=== PATIENT | female | born 1955 | race Caucasian/White ===

== ENCOUNTER 2017-01-14 11:55 | Inpatient (IN) | payer BC ==
[~2017-01-14] VITALS: Ht 167.6 cm; Wt 75.3 kg
[2017-01-14] MEDS ORDERED: VITA1TAB19 PO (14:07)
[2017-01-14] MEDS ORDERED: CHOL100013 PO (14:07)
[2017-01-14] MEDS ORDERED: METF500T4 PO (14:07)
[2017-01-14] MEDS ORDERED: GLIM4TAB2 PO (14:07)
[2017-01-14] MEDS ORDERED: OMEP40CA5 PO (14:07)
[2017-01-14] MEDS ORDERED: ALLO300T PO (14:07)
[2017-01-14] MEDS ORDERED: CINN500C2 PO (14:07)
[2017-01-14] MEDS ORDERED: LOSA100T6 PO (14:07)
[2017-01-14] MEDS ORDERED: PIOG15TA42 PO (14:07)
[2017-01-14] MEDS ORDERED: VANCOMYCIN 1.25 GM in IV NORMAL SALINE 250ML 250 ML IV SCH (14:15)
[2017-01-14] MEDS ORDERED: HYDROcodone/APAP 5/325MG 1 TAB TABLET PO PRN (14:15)
[2017-01-14] MEDS ORDERED: VANCOMYCIN 1.75 GM in IV NORMAL SALINE 500ML BAG 500 ML IV ONE (14:45)
[2017-01-14 14:52] LABS: BASO % 1 % (0-3); EOS % 0 % (0-3); HEMATOCRIT 32.5 % (36.0-47.0); HEMOGLOBIN 10.9 g/dL (12.0-15.5); LYMPH # 1.1 x10^3/uL (1.0-4.8); LYMPH % 14 % (24-48); MEAN CORPUSCULAR HEMOGLOBIN 28 pg (25-35); MEAN CORPUSCULAR HGB CONC 34 g/dL (31-37); MEAN CORPUSCULAR VOLUME 82 fL (79-100); MONO % 8 % (0-9); NEUT % 77 % (31-73); PLATELET COUNT 201 x10^3/uL (140-400); RED BLOOD COUNT 3.96 x10^6/uL (3.50-5.40); RED CELL DISTRIBUTION WIDTH 16.3 % (11.5-14.5)
[2017-01-14 15:00] VITALS: BP 188/89
[2017-01-14] MEDS: ALLOPURINOL 300 MG TABLET. PO SCH (15:00)
[2017-01-14] MEDS: CHOLECALCIFEROL (VITAMIN D3) 1,000 UNIT TABLET PO SCH (15:00)
[2017-01-14] MEDS: PANTOPRAZOLE 40 MG TABLET.DR. PO SCH (15:00)
[2017-01-14] MEDS: PIOGLITAZONE 15 MG TABLET. PO SCH (15:00)
[2017-01-14] MEDS: VITAMIN B COMPLEX TABLET. PO SCH (15:00)
[2017-01-14] MEDS ORDERED: DIPHTH,PERTUSS(ACELL),TET TOX 0.5 ML DISP.SYRIN. VAX IM ONE (15:00)
[2017-01-14 15:04] LABS: ALBUMIN 3.8 g/dL (3.4-5.0); ALBUMIN/GLOBULIN RATIO 0.9 (1.0-1.7); CALCIUM 9.2 mg/dL (8.5-10.1); CREATININE 1.5 mg/dL (0.6-1.0); GFR 35.2; POTASSIUM 3.8 mmol/L (3.5-5.1); TOTAL BILIRUBIN 0.5 mg/dL (0.2-1.0); TOTAL PROTEIN 7.9 g/dL (6.4-8.2)
[2017-01-14] MEDS: POTASSIUM CL 20MEQ D5-0.45NACL 1,000 ML IV SCH ×2 (15:10→21:57)
[2017-01-14] MEDS: ACETAMINOPHEN 325 MG TABLET. PO PRN ×2 (15:11→21:56)
[2017-01-14] MEDS: LOSARTAN POTASSIUM 50 MG TABLET. PO SCH (15:12)
[2017-01-14 15:53] VITALS: BP 188/99
--- NOTE | 2017-01-14 16:22 | HP ---
ADMIT DATE: 01/14/2017 CHIEF COMPLAINT: Facial pain and fever. HISTORY OF PRESENT ILLNESS: A 61-year-old white female with well controlled diabetic, hypertension, who came in with 2 days' of increasing left facial pain, fever, chills, malaise, and weakness. There has been no trauma, sinus symptoms, cough, or urinary tract symptoms and no explanation for the facial pain. PAST MEDICAL HISTORY: MULTIPLE DRUG ALLERGIES INCLUDING SULFA, PENICILLIN, AND ANTI-INFLAMMATORY DRUGS. She is well controlled diabetic on current meds. SOCIAL HISTORY: Nonsmoker, nondrinker, retired, physically active. . FAMILY HISTORY: Unremarkable. REVIEW OF SYSTEMS: No other specific complaints. OBJECTIVE: ENT: Left cheek and left forehead having diffuse papular redness, blanching in nature, non-vesicular, with no discrete areas of tenderness. There is some redness in the left parietal scalp overlying the no palpable adenopathy or masses noted. Eyes are normal. Pharynx is normal. NECK: Revealed no carotid bruits, masses. No overt adenopathy. CARDIOVASCULAR: Regular rate. No irregular beat, murmur, or tachycardia. Blood pressure was mildly elevated. LUNGS: Clear. ABDOMEN: Benign. EXTREMITIES: Good pedal and radial pulses. No joint or skin lesions or nail bed findings. ASSESSMENT: Left facial pain, rash, and fever. I suspect a bacterial cellulitis, most likely diagnosis given is the fever in the rapid onset of the rash with pain. Much less likely what appeared to be herpes zoster, but this is not vesicular and not specifically dermatomal along the cranial nerve branches. PLAN: IV vancomycin and cultures for now. If she develops vesicular lesions, we will add valacyclovir. KENNEDY BARTON MD DR: SHELLI/rohini JOB#: [id number] / [id number]
[2017-01-14] MEDS: metFORMIN 500 MG TABLET PO SCH (17:26)
[2017-01-14] MEDS: VANCOMYCIN PER PHARMACY MC PRN (17:49)
[2017-01-14] MEDS: GLIMEPIRIDE 2 MG TABLET. PO SCH (18:44)
[2017-01-14 19:00] VITALS: BP 171/90
[2017-01-14] MEDS ORDERED: GLIMEPIRIDE 2 MG TABLET. PO SCH (21:00)
[2017-01-14 23:00] VITALS: BP 149/7
[2017-01-15] MEDS ORDERED: diphenhydrAMINE HCL 25 MG CAPSULE PO PRN (05:30)
[2017-01-15 07:00] VITALS: BP 147/87
[2017-01-15] MEDS: PANTOPRAZOLE 40 MG TABLET.DR. PO SCH (08:33)
[2017-01-15] MEDS: CHOLECALCIFEROL (VITAMIN D3) 1,000 UNIT TABLET PO SCH (08:33)
[2017-01-15] MEDS: VITAMIN B COMPLEX TABLET. PO SCH (08:33)
[2017-01-15] MEDS: metFORMIN 500 MG TABLET PO SCH ×2 (08:33→17:14)
[2017-01-15] MEDS: PIOGLITAZONE 15 MG TABLET. PO SCH (08:34)
[2017-01-15] MEDS: ALLOPURINOL 300 MG TABLET. PO SCH (08:34)
[2017-01-15] MEDS: LOSARTAN POTASSIUM 50 MG TABLET. PO SCH (08:34)
[2017-01-15] MEDS ORDERED: GLIMEPIRIDE 2 MG TABLET. PO SCH (09:00)
[2017-01-15] MEDS ORDERED: NON FORMULARY ITEM (Cinnamon Bark (Cinnamon) 500 MG) PO SCH (09:00)
--- NOTE | 2017-01-15 09:05 | PDOC ---
Provider Note Provider Note temp lower, vss, glucose up a little re dm- creat 1.5, same as op- L forehead redness clearly less, no vesicles or sign of HZ- will cont vanco , add test dose clinda re rosmery pearce, need for op med KENNEDY BARTON MD Jan 15, 2017 09:04
[2017-01-15] MEDS: ACETAMINOPHEN 325 MG TABLET. PO PRN ×2 (10:43→21:51)
[2017-01-15 11:00] VITALS: BP 145/85
[2017-01-15] MEDS: diphenhydrAMINE HCL 25 MG CAPSULE PO PRN ×2 (11:49→21:51)
[2017-01-15] MEDS ORDERED: CLINDAMYCIN HCL 150 MG CAPSULE. PO ONE (13:00)
[2017-01-15] MEDS: VANCOMYCIN PER PHARMACY MC PRN (13:08)
[2017-01-15] MEDS: VANCOMYCIN 1 GM in IV NORMAL SALINE 250ML 250 ML IV SCH (14:08)
[2017-01-15 15:00] VITALS: BP 144/85
[2017-01-15] MEDS: GLIMEPIRIDE 2 MG TABLET. PO SCH (17:14)
[2017-01-15 19:00] VITALS: BP 174/95
[2017-01-15 22:51] VITALS: BP 170/90
[2017-01-16 03:00] VITALS: BP 146/85
[2017-01-16 07:00] VITALS: BP 154/83
--- NOTE | 2017-01-16 08:32 | DISCH ---
DISCHARGE INSTRUCTIONS Condition on Discharge Condition on Discharge: Stable Activity After Discharge Activity Instructions for Disc: No restrictions Diet after Discharge Diet after Discharge: Diabetic No Calorie Level Follow-Up Follow up with: 5d KENNEDY BARTON MD Jan 16, 2017 08:32
--- NOTE | 2017-01-16 08:36 | PDOC ---
Provider Note Provider Note [id number] KENNEDY BARTON MD Jan 16, 2017 08:35
[2017-01-16] MEDS: ALLOPURINOL 300 MG TABLET. PO SCH (08:40)
[2017-01-16] MEDS: VITAMIN B COMPLEX TABLET. PO SCH (08:40)
[2017-01-16] MEDS: metFORMIN 500 MG TABLET PO SCH (08:41)
[2017-01-16] MEDS: PANTOPRAZOLE 40 MG TABLET.DR. PO SCH (08:41)
[2017-01-16] MEDS: CHOLECALCIFEROL (VITAMIN D3) 1,000 UNIT TABLET PO SCH (08:41)
[2017-01-16] MEDS: PIOGLITAZONE 15 MG TABLET. PO SCH (08:41)
[2017-01-16] MEDS: LOSARTAN POTASSIUM 50 MG TABLET. PO SCH (08:47)
[2017-01-16 11:00] VITALS: BP 156/84
[2017-01-16] MEDS: VANCOMYCIN PER PHARMACY MC PRN (13:19)
[2017-01-16] MEDS: diphenhydrAMINE HCL 25 MG CAPSULE PO PRN (14:31)
[2017-01-16] MEDS: ACETAMINOPHEN 325 MG TABLET. PO PRN (14:31)
[2017-01-16] MEDS: VANCOMYCIN 1 GM in IV NORMAL SALINE 250ML 250 ML IV SCH (14:58)
[2017-01-16 15:21] VITALS: BP 151/86
[2017-01-16] MEDS ORDERED: CLIN150C14 PO (15:21)
--- NOTE | 2017-01-16 18:49 | DS ---
DATE OF DISCHARGE: 01/16/2017 HOSPITAL SUMMARY: The patient came in with left facial cellulitis of the forehead and cheek area and even the left scalp. There were no vesicular lesions and was not consistent with herpes zoster. CBC and chemistry profile were within normal limits with a baseline creatinine of 1.5. Blood culture had no growth. She was given IV vancomycin and will have three doses total prior to discharge. She had a low-grade fever on admission and became afebrile after about 12 hours and has remained afebrile since that time. She tolerated a test dose of clindamycin because of multiple prior drug allergies and is comfortable to take her last dose of vancomycin and start the clindamycin in 24 hours to be followed as an outpatient. FINAL DIAGNOSIS: Facial cellulitis and chronic kidney disease 3, stable. OPERATIONS, PROCEDURES, COMPLICATIONS, AND CONSULTATIONS: None. DISPOSITION: She will take clindamycin 300 mg t.i.d. for 3 days, then 150 mg t.i.d. after that ____ chance of drug side effects. Home medications remain the same. Office followup in 5 days. The patient did receive a tetanus prophylaxis as well. KENNEDY BARTON MD DR: SHELLI/nts JOB#: [id number] / [id number]
== END 2017-01-16 16:55 | disposition home or self-care (01) | DRG 603 ==
LOC: 5 NORTH 13:12
PROVIDERS: ADMIT Family Medicine; ATTEND Family Medicine
DX: L03.211 Cellulitis of face (principal); R50.9 Fever, unspecified; E11.9 Type 2 diabetes mellitus without complications; I10 Essential (primary) hypertension; E11.22 Type 2 diabetes mellitus with diabetic chronic kidney disease; I12.9 Hypertensive chronic kidney disease with stage 1 through stage 4 chronic kidney disease, or unspecified chronic kidney disease; N18.3 Chronic kidney disease, stage 3 (moderate); Z88.0 Allergy status to penicillin; Z88.2 Allergy status to sulfonamides; Z88.8 Allergy status to other drugs, medicaments and biological substances
CPT/HCPCS: 36415; 80053; 82962; 85027; 87040; 90715; J3370; J7040; J7050; Q0163; J7030

== ENCOUNTER → 2017-07-30 | Outpatient (CLI) | payer BC | END | disposition home or self-care (01) | LOC: KCIC MAMMO 10:33 | DX: Z12.31 Encounter for screening mammogram for malignant neoplasm of breast (principal) | CPT/HCPCS: 77067 ==

== ENCOUNTER → 2018-05-04 | Outpatient (CLI) | payer BC ==
[~2018-05-04] MED LIST: ALLO300T PO; CHOL100013 PO; CINN500C2 PO; CLIN150C14 PO; GLIM4TAB2 PO; LOSA100T7 PO; METF500T16 PO; OMEP40CA5 PO; PIOG15TA42 PO; VITA1TAB19 PO
--- NOTE | 2018-05-04 16:38 | RAD ---
FOOT LEFT 3V, ANKLE LEFT 3V Clinical Indication: DORSAL ANKLE PAIN AND SWELLING SINCE DECEMBER. NO KNOWN INJURY Comparison: None. Findings: There is diffuse soft tissue swelling of the ankle. There are moderate calcaneal enthesophytes. Ankle mortise is intact. No acute ankle fracture. Hammertoe deformities of the second through fifth toes. Probable bipartite medial sesamoid. Mild metatarsus primus varus and hallux valgus. Prominent os peroneum. No dorsal soft tissue swelling. No acute fracture of the foot. IMPRESSION: No acute bone abnormality. Electronically signed by: Ry Lewis MD (05/04/2018 4:35 PM) [id number]
--- NOTE | 2018-05-04 17:03 | RAD ---
Examination: Ultrasound renal artery duplex HISTORY: History of hypertension COMPARISON: None available. TECHNIQUE: Grayscale, color Doppler 2-D, spectral waveform is in the bilateral renal arteries are performed. Grayscale images of the kidneys are performed. FINDINGS: The right kidney measures 9.3 x 4.9 x 4.3 cm. The left kidney measures 10.3 x 5.2 x 4.1 cm. Bilateral renal veins are patent. The right renal artery velocity proximally measures 101 cm/s, mid 102 cm/s and distally measures 97 cm/s. The right renal artery to aorta velocity ratio is 1.06. The left renal artery velocity ratio proximally measures 149 cm/s, Mid 122 cm/s and distally measures 104 cm/s. The left renal artery to aorta velocity ratio is 1.55. No evidence of hydronephrosis. The urinary bladder is mildly distended. The right ureteral jet is not identified in the urinary bladder. IMPRESSION: No evidence of hemodynamically significant stenosis. Electronically signed by: Gavin Woods MD (05/04/2018 5:00 PM) [place] [id number]
== END | disposition home or self-care (01) ==
LOC: US 15:32
PROVIDERS: ATTEND Family Medicine
DX: I12.9 Hypertensive chronic kidney disease with stage 1 through stage 4 chronic kidney disease, or unspecified chronic kidney disease (principal); E11.22 Type 2 diabetes mellitus with diabetic chronic kidney disease; N18.3 Chronic kidney disease, stage 3 (moderate); N32.89 Other specified disorders of bladder; M20.12 Hallux valgus (acquired), left foot; M20.42 Other hammer toe(s) (acquired), left foot; M77.32 Calcaneal spur, left foot; R22.42 Localized swelling, mass and lump, left lower limb
CPT/HCPCS: 73610; 73630; 93975

== ENCOUNTER → 2018-10-05 | Outpatient (CLI) | payer BC ==
[~2018-10-05] MED LIST changes: +LOSA100T14 PO; -LOSA100T7 PO
[2018-10-05] MEDS: REGADENOSON 0.4 MG/5 ML DISP.SYRIN. IV ONE (12:12)
--- NOTE | 2018-10-06 12:50 | RAD ---
MR#: [id number] Date of Study: 10/05/2018 Ordering Physician: ZAIRA DAVIS, Referring Physician: SERVANDO LANG Tech: CORKY Spears APPROVED REPORT Test Type: Pharmacological Stress Nurse/Tech: Ashley Aguirre R.N. Test Indications: chest heaviness, palpatations Cardiac History: htn,dm Medications: See Electronic Medical Record Medical History: See Electronic Medical Record Resting ECG: SR Resting Heart Rate: 62 bpm Resting Blood Pressure: 151/74mmHg Pretest Chest Pain: No chest pain Nurse/Tech Notes S1S2, lungs CTA Consent: The procedure was explained to the patient in lay terms. Informed consent was witnessed. Anupam eout was entered into [employer]. History and Stress Test performed by RT Varun (R) (N) Pharm. Details Pharmacologic stress testing was performed using 0.4mg per 5ml of regadenoson given intravenously ove r 7-10 seconds. Stress Symptoms SOB, pounding HR in neck, POST EXERCISE Reason for Termination: Infusion complete Max HR: 87 bpm Max Blood Pressure: 170/73mmHg Blood Pressure response to exercise: Normal blood pressure response during stress. Heart Rate response to exercise: wnl Chest Pain: No. Arrhythmia: No. ST Change: No. INTERPRETATION Stress EKG Conclusion: No evidence of stress induced EKG changes. Imaging Protocol IMAGE PROTOCOL: Rest Tc-99m/stress Tc-99m 1 day Rest: Stress: Viability: Radiopharm.Tc99m VdzldbrhuEa37u Sestamibi Dose11.1mCi 32mCi Duration 16min. 13min. Img Date 10/05/2018 10/05/2018 Inj-Img [id number]. 60min. Rest Admin Site:IV - Right AntecubitalAdministrator:RT Varun (R)(N) Stress Admin Site: IV - Right AntecubitalAdministrator: SERVANDO ZuluagaTCJoshua, ARRT (R)(N) STRESS DATA End Diast. Vol.62.0mlLVEDV index BSA34.0ml End Syst. Vol.11.0mlLVESV index BSA6.0ml Myocardial Ywci201.0gEject. Gondybem26.0% Stress Scores Regional WT0.00Summed WT0.00 Regional WM0.00Summed WM0.00 The rest and stress images show normal perfusion, normal contraction and thickening. LV Perf. Quant 17 Seg. SSS0.00 17 Seg. SRS0.00 17 Seg. SDS0.00 Stress Defect Extent (% LAD)0.00Rest Defect Extent (% LAD)0.00Rev. Defect Extent (% LAD)0.00 Stress Defect Extent (% LCX) 0.00Rest Defect Extent (% LCX)0.00Rev. Defect Extent (% LCX)0.00 Stress Defect Extent (% RCA)0.00Rest Defect Extent (% RCA)0.00Rev. Defect Extent (% RCA)0.00 Stress Defect Extent (% MAYRA)0.00Rest Defect Extent (% MAYRA)0.00Rev. Defect Extent (% MAYRA)0.00 Other Information Quality:Good Risk Assessment: Low Risk Conclusion 1. No evidence of EKG changes with stress testing. 2. Normal perfusion at stress/rest. 3. Low risk study. 4. EF > 60%. Signed by : Robert Knight, Electronically Approved : 10/06/2018 12:49:29
== END | disposition home or self-care (01) ==
LOC: NM 10:29
PROVIDERS: ATTEND Internal Medicine Cardiovascular Disease
DX: R06.09 Other forms of dyspnea (principal); R06.02 Shortness of breath; M54.12 Radiculopathy, cervical region; I10 Essential (primary) hypertension; E11.9 Type 2 diabetes mellitus without complications
CPT/HCPCS: 78452; 93017; 96374; A9500; J2785

== ENCOUNTER → 2018-10-20 | Outpatient (CLI) | payer BC ==
--- NOTE | 2018-10-20 13:55 | CARD ---
MR#: [id number] Date of Study: 10/20/2018 Ordering Physician: ZAIRA SABA, Referring Physician: ZAIRA SABA Tech: Vane Cary RDCS APPROVED REPORT EXAM: Two-dimensional and M-mode echocardiogram with Doppler and color Doppler. Other Information Quality : AverageHR: 55bpm Rhythm : Bradycardia INDICATION Dyspnea 2D DIMENSIONS RVDd2.8 (2.9-3.5cm)Left Atrium(2D)3.2 (1.6-4.0cm) IVSd1.0 (0.7-1.1cm)Aortic Root(2D)2.7 (2.0-3.7cm) LVDd4.2 (3.9-5.9cm)LVOT Diameter1.9 (1.8-2.4cm) PWd0.8 (0.7-1.1cm)LVDs2.8 (2.5-4.0cm) FS (%) 34.0 %SV50.1 ml LVEF(%)63.2 (>50%) M-Mode DIMENSIONS Left Atrium(MM)3.47 (2.5-4.0cm)Aortic Root3.13 (2.2-3.7cm) Aortic Valve AoV Peak Eran.126.7cm/sAoV VTI23.0cm AO Peak GR.6.4mmHgLVOT Peak Eran.81.3cm/s AO Mean GR.3mmHgAVA (VMAX)1.74cm2 TRINA (VTI)1.80cm2 Mitral Valve MV E Msubeosi47.1cm/sMV DECEL XSOZ220af MV A Xdbgsunt83.1cm/sE/A Ratio0.9 MV A Gjweljlx052ju Pulmonary Valve PV Peak Fegsojzg97.8cm/s Tricuspid Valve TR P. Baaeoarr151mh/sRAP URLCQJSK3oqXy TR Peak Gr.38jkFvPXUG19djAv Pulmonary Vein S1 Oiakhgrf49.4cm/sD2 Eraohxug44.3cm/s PVa [id number] LEFT VENTRICLE The left ventricle is normal size. There is normal left ventricular wall thickness. The left ventricu lar systolic function is normal. The Ejection Fraction is 60-65%. There is normal LV segmental wall m otion. Transmitral Doppler flow pattern is Grade I-abnormal relaxation pattern. RIGHT VENTRICLE The right ventricle is normal size. There is normal right ventricular wall thickness. The right ventr icular systolic function is normal. ATRIA The left atrium size is normal. The right atrium size is normal. The interatrial septum is intact wit h no evidence for an atrial septal defect or patent foramen ovale as noted on 2-D or Doppler imaging. AORTIC VALVE The aortic valve is normal in structure and function. The aortic valve is trileaflet. Doppler and Col or Flow revealed no significant aortic regurgitation. There is no significant aortic valvular stenosi s. There is no aortic valvular vegetation. MITRAL VALVE The mitral valve is normal in structure and function. There is no evidence of mitral valve prolapse. There is no mitral valve stenosis. Doppler and Color-flow revealed trace mitral regurgitation. TRICUSPID VALVE The tricuspid valve is normal in structure and function. Doppler and Color Flow revealed trace tricus pid regurgitation. The PA pressure was estimated at 20 mmHg. There is no tricuspid valve prolapse or vegetation. There is no tricuspid valve stenosis. PULMONIC VALVE The pulmonary valve is normal in structure and function. Doppler and Color Flow revealed no pulmonic valvular regurgitation. There is no pulmonic valvular stenosis. GREAT VESSELS The aortic root is normal in size. The ascending aorta is normal in size. The IVC is normal in size a nd collapses >50% with inspiration. PERICARDIAL EFFUSION There is no evidence of significant pericardial effusion. Critical Notification Critical Value: No <Conclusion> The left ventricular systolic function is normal. The Ejection Fraction is 60-65%. There is normal LV segmental wall motion. Transmitral Doppler flow pattern is Grade I-abnormal relaxation pattern. Trace mitral regurgitation. Trace tricuspid regurgitation. The PA pressure was estimated at 20 mmHg. There is no evidence of significant pericardial effusion. Signed by : Zaira Saba, Electronically Approved : 10/20/2018 13:54:34
== END | disposition home or self-care (01) ==
LOC: ECHO 12:44
PROVIDERS: ATTEND Internal Medicine Cardiovascular Disease
DX: R06.09 Other forms of dyspnea (principal); Z88.0 Allergy status to penicillin; Z88.2 Allergy status to sulfonamides; Z88.8 Allergy status to other drugs, medicaments and biological substances
CPT/HCPCS: 93306

== ENCOUNTER → 2021-02-08 | Outpatient (CLI) | payer MEDICARE ==
[~2021-02-08] MED LIST changes: -CLIN150C14 PO; +CLIN150C15 PO; -GLIM4TAB2 PO; +GLIM4TAB8 PO; -OMEP40CA5 PO; +OMEP40CA7 PO
--- NOTE | 2021-02-08 14:53 | KCIC ---
XR HIP (WITH OR WITHOUT PELVIS)LEFT 1 VIEW History: Left hip pain for 7 months. No known injury. Comparison: None. Technique: AP pelvis. Coned-down frog-leg lateral left hip. Findings: Decreased osseous mineralization. No fracture or dislocation. The pubic rami are intact. Degenerative changes of the sacroiliac joints and pubic symphysis. Mild femoral acetabular degenerative changes w ith subchondral cystic change superior acetabulum. Soft tissues are unremarkable. Impression: 1. Degenerative changes without acute osseous abnormality of the left hip. Electronically signed by: Leonard Ma MD (02/08/2021 2:51 PM) [facility]
== END ==
LOC: KCIC 10:25
PROVIDERS: ATTEND Family Medicine
DX: M16.12 Unilateral primary osteoarthritis, left hip (principal); M46.1 Sacroiliitis, not elsewhere classified; M25.852 Other specified joint disorders, left hip
CPT/HCPCS: 73501